=== PATIENT | male | born 1945 | race Caucasian/White ===

== ENCOUNTER 2017-07-19 02:08 | Emergency (ER) | END 2017-07-19 07:47 | disposition home or self-care (01) ==

== ENCOUNTER 2017-07-21 21:45 | Emergency (ER) | END 2017-07-21 23:50 | disposition home or self-care (01) ==

== ENCOUNTER 2017-07-22 19:05 | Emergency (ER) | END 2017-07-22 21:11 | disposition home or self-care (01) ==